=== PATIENT | male | born 1945 | race Caucasian/White ===

== ENCOUNTER 2024-02-05 16:46 | Emergency (ER) | payer MEDICARE, SELFPAY ==
[2024-02-05 16:53] VITALS: BP 133/56
[2024-02-05 17:21] LABS: % Basophils 1.5 % (0-2); % Eosinophils 7.1 % (0-6); % Immature Granulocytes 0.6 % (0-0.5); % Lymphocytes 16.8 % (20.5-51.1); % Monocytes 13.8 % (1.7-9.3); % Neutrophils 60.2 % (42.2-75.2); Absolute Basophils 0.1 10^3/uL (0-0.2); Absolute Eosinophils 0.4 10^3/uL (0-0.7); Absolute Lymphocytes 0.9 10^3/uL (1.2-3.4); Absolute Monocytes 0.7 10^3/uL (0.1-0.6); Absolute Neutrophils 3.2 10^3/uL (1.4-6.5); Hematocrit 22.1 % (39.0-52.0); Hemoglobin 7.3 g/dL (13.0-18.0); Mean Corpuscular Hgb 31.5 pg (27.0-31.0); Mean Corpuscular Volume 95.3 fL (80.0-94.0); Mean Platelet Volume 9.8 fL (7.4-10.4); Nucleated Red Blood Cells % 0 % (-); Platelet Count 236 10^3/uL (130-400); Red Blood Cell Count 2.32 10^6/uL (4.70-6.10); Red Cell Dist. Width 14.9 % (11.5-14.5); White Blood Cell Count 5.2 10^3/uL (4.8-10.8)
[2024-02-05 17:53] LABS: ALT (SGPT) 18 U/L (0-50); AST (SGOT) 30 U/L (17-59); Albumin 3.2 g/dl (3.5-5.0); Alkaline Phosphatase 79 U/L (38-126); Blood Urea Nitrogen 21 mg/dl (9-20); Calcium 8.7 mg/dl (8.4-10.2); Carbon Dioxide 25 mmol/L (22-30); Chloride 104 mmol/L (98-107); Glucose 116 mg/dl (70-99); Potassium 4.5 mmol/L (3.5-5.1); Sodium 138 mmol/L (135-145); Total Bilirubin 0.4 mg/dl (0.2-1.3); eGFR > 60.00
--- NOTE | 2024-02-05 18:45 | ED.GENMED ---
History of Present Illness
General
Chief Complaint: Abnormal Lab Value
Source: patient
Exam Limitations: none
Time Seen by Provider: 02/05/24 17:57
Nursing documentation reviewed up to this point in time: agreed with
History of Present Illness
History of Present Illness:
Patient presents to ED for an evaluation after outpatient blood work, ordered by his primary care physician revealed low hemoglobin, 6.7. Blood work was ordered as a follow-up to his recent admission in [facility] for symptomatic anemia,
during which time patient received iron transfusion with improvement. 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 Patient is currently taking Plavix daily. Patient was also taking Xarelto, but was discontinued
secondary to bleeding in his mouth recently. At the time of evaluation ED, patient is without any complaints, i.e., dizziness, shortness of breath, weakness, fatigue, nausea, skin color changes. Denies bleeding with urination or with bowel
movements. In fact, per spouse, over the past 2 days, patient appeared to be doing much better, in terms of his overall activity and condition. Patient has never received a blood transfusion in the past.
Review of Systems
Review of Systems
Allergies reviewed?: Yes
All Other Systems: ROS reviewed and negative except as documented in HPI and ROS
Constitutional: Reports no symptoms
Respiratory: Reports no symptoms; Denies trouble breathing
Cardiac: Reports no symptoms; Denies palpitations
ABD/GI: Reports no symptoms
: Reports no symptoms
Musculoskeletal: Reports no symptoms
Skin: Reports no symptoms
Neurological: Reports no symptoms; Denies dizzy or weakness
Phy Exam
Physical Exam
Physical Exam:
Physical Exam
General: no apparent distress, not acutely ill. afebrile
Head: nc/at. eomi
Neck: supple. normal range of motion
Heart: s1/s2 regular rate and rhythm, no murmur. equal radial pulses.
Lungs: no acute respiratory distress. clear bilaterally
Abdomen: normal bowel sounds. not tender.
Neuro: alert and oriented. no focal neurological deficits
Skin: no rash
Psychiatric: well kept. interactive and cooperative
Extremities: no edema. no calf tenderness.
Course
Orders/Labs/Results
Orders:
Orders
02/05/24 17:09
Type+Screen Urgent
CMP [Comprehensive Metabolic Panel] Urgent
Complete Blood Count/With Diff Urgent
02/05/24 18:50
Electrocardiogram (*1) Urgent
Reason for Study: Atrial Fibrillation
EKG- Treatment ONCE
Abnormal Lab Results
02/05/24
17:09
RBC 2.32 L 10^6/uL
(4.70-6.10)
Hgb 7.3 L g/dL
(13.0-18.0)
Hct 22.1 L %
(39.0-52.0)
MCV 95.3 H fL
(80.0-94.0)
MCH 31.5 H pg
(27.0-31.0)
RDW 14.9 H %
(11.5-14.5)
Absolute Lymphs (auto) 0.9 L 10^3/uL
(1.2-3.4)
Absolute Monos (auto) 0.7 H 10^3/uL
(0.1-0.6)
Immature Gran % 0.6 H %
(0-0.5)
Lymphocytes % 16.8 L %
(20.5-51.1)
Monocytes % 13.8 H %
(1.7-9.3)
Eosinophils % 7.1 H %
(0-6)
BUN 21 H mg/dl
(9-20)
Glucose 116 H mg/dl
(70-99)
Total Protein 6.0 L g/dl
(6.3-8.2)
Albumin 3.2 L g/dl
(3.5-5.0)
02/05/24 17:09
02/05/24 17:09
Vital Signs
Initial and Last Documented VS:
Initial Vital Signs
Temp Pulse Resp BP Pulse Ox
99.5 F 60 18 133/56 99
02/05/24 16:53 02/05/24 16:53 02/05/24 16:53 02/05/24 16:53 02/05/24 16:53
Last Documented Vital Signs
Temp Pulse Resp BP Pulse Ox
99.5 F 60 18 133/56 99
02/05/24 16:53 02/05/24 16:53 02/05/24 16:53 02/05/24 16:53 02/05/24 16:53
MDM/Problems Addressed
MDM/Problems Addressed:
H&H noted. Patient remains afebrile, hemodynamically stable, and without any acute distress. No evidence of acute bleeding at this time. Patient will continue to take iron pills as an outpatient and follow-up with his PCP for reevaluation,
including repeat blood work over the next 1 to 2 weeks. Advised earlier blood work, if he starts having his symptoms concerning for an acute blood loss. In addition, patient advised to follow-up with his lace winder for an outpatient
consultation, to discuss optimal management for his paroxysmal atrial fibrillation, as he is no longer taking Xarelto.
*EKG
Interpreted by ED Provider?: Yes
EKG Intrepretation Date: 02/05/24
Heart Rate: 59
Rate: bradycardiac
Rhythm: sinus
[place]: normal axis
Interval: first degree heart block
*Critical Care Note
Total Time (30-74mins, 75-104mins- exclusive of procedures): Not Applicable
ED Attending Note
-
Portions of this chart may have been created with voice recognition software.� Occasional wrong word or��sound alike� substitutions may have occurred due to the inherent limitations of voice recognition software.
Discharge Plan
Departure
Patient Disposition: Home (Routine Discharge)
Date of Disposition: 02/05/24
Time of Disposition: 18:52
Patient with high blood pressure during this ER visit?: Yes
Discharge Problem:
Anemia
Instructions: Normocytic Normochromic Anemia (DC)
Referrals:
Iam Aguilar MD [Active] -
Activity Restrictions/Additional Instructions:
As discussed, please follow-up with your primary care physician and or lace winder for reevaluation as an outpatient, including repeat blood work over the next 1 to 2 weeks. Please consider obtaining blood work earlier or return to ED with any
evidence of bleeding or symptoms concerning for an acute blood loss, i.e. dizziness/weakness/shortness of breath/palpitations.
Interventions
Interventions:
*Risk Screen - Suicide Last Done: 02/05/24 17:49
*General Assessment Last Done: 02/05/24 17:49
*Neglect/Abuse Screening Last Done: 02/05/24 17:49
ED- Fall Risk Assessment Last Done: 02/05/24 17:49
*Nursing Disposition Last Done: 02/05/24 19:10
Discharge Date and Time
Discharge Date/Time: 02/05/24 19:18
Print Language: [place]
== END 2024-02-05 19:18 | disposition home or self-care (01) ==
LOC: EMR 16:46
PROVIDERS: EMERGENCY PHYSICIAN Emergency Medicine; FAMILY PHYSICIAN Family Medicine
DX: D64.9 Anemia, unspecified (principal); Z79.01 Long term (current) use of anticoagulants; Z79.02 Long term (current) use of antithrombotics/antiplatelets
CPT/HCPCS: 99283; 80053; 85025; 86850; 86900; 86901; 93005

== ENCOUNTER 2024-04-03 22:25 | Emergency (ER) | payer MEDICARE, SELFPAY ==
[2024-04-03 22:29] VITALS: BP 155/60; BMI 21.5
[2024-04-03 23:00] VITALS: BP 167/65
--- NOTE | 2024-04-03 23:32 | ED.GENMED ---
History of Present Illness
General
Chief Complaint: Fall
Source: patient and spouse
Exam Limitations: none
Time Seen by Provider: 04/03/24 22:33
Nursing documentation reviewed up to this point in time: agreed with
History of Present Illness
History of Present Illness:
This is a 78-year-old gentleman who has history of atrial fibrillation, hypertension, hyperlipidemia, chronically maintained on Plavix. He initially arrives to the ED with his �she is being evaluated for bilateral lower extremity redness,
cellulitis. While assisting her to undress in the exam room he stepped back from the stretcher, lost his balance falling backwards onto his buttocks and then striking the back of his head. He denies loss of consciousness. He did require
assistance from myself as well as several ED staff members to sit him up and lift him onto an ED stretcher.
He complains of pain to the back of his head as well as mild pain superior posterior cervical region. No radiation of the pain, no weakness nor numbness, no nausea or vomiting, no vision difficulty. He denies dizziness nor lightheadedness and has
full recollection of the fall admits that he lost his balance while stepping backwards.
He does not utilize a cane or walker but has suffered a similar fall January of this year where he injured his wrist, evaluated at [facility]. Wrist x-rays were unremarkable but during that ED visit he was noted to be
significantly anemic with a hemoglobin of 6.4. Admitted to the hospital for evaluation of anemia and underwent upper endoscopy showing inflammation but no bleeding.
He is scheduled for colonoscopy next week with instructions to discontinue Plavix beginning Saturday, April 04.
He did undergo laser surgery to both eyes earlier today. He states the laser procedure was uneventful and he was able to drive himself home without difficulty. He denies eye pain or vision difficulty.
He denies chest pain, denies shortness of breath, no dyspnea on exertion, no dizziness or lightheadedness.
Since that hospitalization in January he has been maintained on PPI as well as oral iron supplement. He denies black or tarry stools.
Past History
Past History
ED Past Medical History: Arrthythmia (Atrial fibrillation), HTN, Hypercholesterolemia and Other (Iron deficiency anemia, concern for chronic GI blood loss.)
ED Past Surgical History: Orthopedic (Hip replacement) and Other (AAA repair May 2023; hernia repair)
Social History
Tobacco: Non-smoker
Alcohol: None
Drug: None
Personal:
Living: with family
Employment: Retired
Family History
Family History: Other (Noncontributory)
Phy Exam
Physical Exam
Physical Exam:
TRAUMA EXAM:
VITAL SIGNS: Vital signs reviewed, cooperative
DISTRESS: Mildly anxious initially after fall. Anxiety is since resolved.
EYES: Pupils reactive, no orbital trauma
NOSE: No deformity or epistaxis
FACE AND SCALP: No palpable scalp contusions nor hematomas, external canals no blood
NECK: Supple, no palpable midline tenderness, mild tenderness paracervical region superiorly.
BACK: Back nontender, pelvis stable to compression
RESPIRATORY: No distress, breath sounds normal, no tender chest wall
CARDIAC: No murmur, pulses equal and strong
ABDOMEN: Soft nontender bowel sounds normal
SKIN: Skin intact no bleeding, mildly pale in color. Fair turgor.
EXTREMITIES: Nontender, full range of motion without difficulty nor pain.
NEUROLOGICAL: Alert, oriented, no motor deficits
PSYCH: Mood affect normal
Course
Orders/Labs/Results
Orders:
Orders
04/03/24 22:33
CT Cervical Spine W/o Iv Contr Urgent
Comment:
Reason For Exam: fall, post head injury, post neck pain
CT Head W/o Iv Contrast Urgent
Comment:
Reason For Exam: fall, post head injury
04/03/24 22:56
Basic Metabolic Panel Urgent
Complete Blood Count/With Diff Urgent
Reticulocyte Count Urgent
Abnormal Lab Results
04/04/24
00:15
RBC 3.01 L 10^6/uL
(4.70-6.10)
Hgb 9.4 L g/dL
(13.0-18.0)
Hct 29.4 L %
(39.0-52.0)
MCV 97.7 H fL
(80.0-94.0)
MCH 31.2 H pg
(27.0-31.0)
MCHC 32.0 L g/dL
(33.0-37.0)
MPV 10.8 H fL
(7.4-10.4)
Abs Immat Gran (auto) 0.1 H 10^3/uL
(0-0.05)
Absolute Monos (auto) 0.8 H 10^3/uL
(0.1-0.6)
Immature Gran % 1.4 H %
(0-0.5)
Lymphocytes % 19.7 L %
(20.5-51.1)
Monocytes % 12.9 H %
(1.7-9.3)
Chloride 108 H mmol/L
(98-107)
BUN 25 H mg/dl
(9-20)
Glucose 124 H mg/dl
(70-99)
04/04/24 00:15
04/04/24 00:15
Vital Signs
Initial and Last Documented VS:
Initial Vital Signs
Temp Pulse Resp BP Pulse Ox
98.4 F 65 16 155/60 99
04/03/24 22:29 04/03/24 22:29 04/03/24 22:29 04/03/24 22:29 04/03/24 22:29
Last Documented Vital Signs
Temp Pulse Resp BP Pulse Ox
98.4 F 65 19 183/77 99
04/03/24 22:29 04/04/24 00:11 04/04/24 00:11 04/04/24 00:11 04/04/24 00:11
MDM/Problems Addressed
Differential Diagnosis Includes:
Patient suffered mechanical slip and fall striking the back of his head. As he is maintained on Plavix, concern for traumatic closed head injury, he is at increased risk for bleeding thus will check CT of the head.
Also notes some mild posterior neck pain will check CT cervical spine.
He has known history of iron deficiency anemia, currently being worked up by GI with colonoscopy scheduled for next week.
Most recent hemoglobin reportedly around 8.
He denies dizziness nor lightheadedness and fall clearly appears mechanical in nature but will check labs assess for recurrent/worsening anemia.
Nothing in history nor exam to suggest arrhythmia as cause for fall.
Chronic conditions affecting care: HTN, Arrhythmia and Other (Iron deficiency anemia)
*Radiology
Radiology exam reviewed: radiology read reviewed
*Pulse Oximetry
Patient hypoxic: no
*Rn Allergy Interpretation
Rate: normal and bradycardiac
Interpretation: normal
Rhythm: sinus
*Critical Care Note
Total Time (30-74mins, 75-104mins- exclusive of procedures): Not Applicable
Update Note
Update Note:
04/04/2024 0049 AM
Patient continues to feel well, no further headache, no neck pain. Resting comfortably.
He remains hemodynamically stable.
CT of the head as well as C-spine showed no acute traumatic findings. 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 He continues to have no midline bony vertebral tenderness.
Labs are reassuring with hemoglobin of 9.4. Apparent increased from his baseline of 8.
Chemistries are unremarkable.
Will discharge to home with recommendations for prompt follow-up with PCP.
ED Attending Note
-
Portions of this chart may have been created with voice recognition software.� Occasional wrong word or��sound alike� substitutions may have occurred due to the inherent limitations of voice recognition software.
Discharge Plan
Departure
Patient Disposition: Home (Routine Discharge)
Date of Disposition: 04/04/24
Time of Disposition: 00:55
Patient with high blood pressure during this ER visit?: No
Condition: Good
Discharge Problem:
fall in emergency department, mechanical fall, Minor closed head injury, stable anemia
Instructions: Head Injury in Adults (DC), Preventing falls in adults
Referrals:
NONE,* [Family Provider] -
Activity Restrictions/Additional Instructions:
Follow-up with your PCP this week for recheck.
Interventions
Interventions:
*Risk Screen - Suicide Last Done: 04/03/24 22:29
*General Assessment Last Done: 04/03/24 22:29
*Neglect/Abuse Screening Last Done: 04/03/24 22:29
ED- Fall Risk Assessment Last Done: 04/03/24 22:29
*ED COVID-19 Vaccine History Last Done: 04/03/24 22:29
ED-Musculoskeletal Assessment Last Done: 04/03/24 22:35
ED- Neurological Assessment Last Done: 04/03/24 22:35
ED-Skin Assessment Last Done: 04/03/24 22:35
Discharge Date and Time
Print Language: DIVEHI
[2024-04-04 00:11] VITALS: BP 183/77
[2024-04-04 00:30] VITALS: BP 185/77
[2024-04-04 00:36] LABS: % Basophils 1.1 % (0-2); % Eosinophils 3.8 % (0-6); % Immature Granulocytes 1.4 % (0-0.5); % Lymphocytes 19.7 % (20.5-51.1); % Monocytes 12.9 % (1.7-9.3); % Neutrophils 61.1 % (42.2-75.2); Absolute Basophils 0.1 10^3/uL (0-0.2); Absolute Eosinophils 0.2 10^3/uL (0-0.7); Absolute Immature Granulocytes 0.1 10^3/uL (0-0.05); Absolute Lymphocytes 1.3 10^3/uL (1.2-3.4); Absolute Monocytes 0.8 10^3/uL (0.1-0.6); Absolute Neutrophils 3.9 10^3/uL (1.4-6.5); Hematocrit 29.4 % (39.0-52.0); Hemoglobin 9.4 g/dL (13.0-18.0); Mean Corpuscular Hgb 31.2 pg (27.0-31.0); Mean Corpuscular Volume 97.7 fL (80.0-94.0); Mean Platelet Volume 10.8 fL (7.4-10.4); Nucleated Red Blood Cells % 0 % (-); Platelet Count 157 10^3/uL (130-400); Red Blood Cell Count 3.01 10^6/uL (4.70-6.10); Red Cell Dist. Width 13.6 % (11.5-14.5); Reticulocyte Count 1.2 % (0.4-2.8); White Blood Cell Count 6.4 10^3/uL (4.8-10.8)
[2024-04-04 00:47] LABS: Blood Urea Nitrogen 25 mg/dl (9-20); Calcium 8.5 mg/dl (8.4-10.2); Carbon Dioxide 25 mmol/L (22-30); Chloride 108 mmol/L (98-107); Estimated Creatinine Clearance 45 ml/min; Glucose 124 mg/dl (70-99); Potassium 4.1 mmol/L (3.5-5.1); Sodium 142 mmol/L (135-145); eGFR > 60.00
[2024-04-04 01:00] VITALS: BP 193/80
== END 2024-04-04 01:05 | disposition home or self-care (01) ==
LOC: EMR 22:25
PROVIDERS: EMERGENCY PHYSICIAN Emergency Medicine
DX: S09.90XA Unspecified injury of head, initial encounter (principal); W01.198A Fall on same level from slipping, tripping and stumbling with subsequent striking against other object, initial encounter; I48.91 Unspecified atrial fibrillation; I10 Essential (primary) hypertension; D64.9 Anemia, unspecified; E78.00 Pure hypercholesterolemia, unspecified; Z79.02 Long term (current) use of antithrombotics/antiplatelets
CPT/HCPCS: 99284; 70450; 72125; 80048; 85025; 85045